=== PATIENT | female | born 1975 | race Caucasian/White ===

== ENCOUNTER 2019-04-11 09:40 | Day surgery (SDC) | payer OTHER ==
[~2019-04-11] VITALS: Ht 160 cm; Wt 78.9 kg
[2019-04-11] MEDS ORDERED: LIDOCAINE 2% 100 MG/5 ML UJET TP ONE (12:49)
[2019-04-11] MEDS ORDERED: fentaNYL 0.05 MG/ML VIAL ONE (12:49)
== END 2019-04-11 13:25 | disposition home or self-care (01) ==
LOC: MTU 09:40 → MOR 09:40
PROVIDERS: ATTEND Internal Medicine Gastroenterology
DX: Z12.11 Encounter for screening for malignant neoplasm of colon (principal); K57.30 Diverticulosis of large intestine without perforation or abscess without bleeding; Z80.0 Family history of malignant neoplasm of digestive organs; I10 Essential (primary) hypertension; Z79.899 Other long term (current) drug therapy; E66.9 Obesity, unspecified; Z68.31 Body mass index [BMI] 31.0-31.9, adult
CPT/HCPCS: 45378; 81025; J3010